=== PATIENT | female | born 1990 | race American Indian/Alaskan Native ===

== ENCOUNTER 2017-06-12 07:28 | Outpatient (CLI) | payer OTHER ==
--- NOTE | 2017-06-12 12:23 | XRay Report ---
XRAY LEFT SHOULDER THREE VIEWS: 06/12/17 07:28:00 CLINICAL: Pain FINDINGS: Acromioclavicular joint separation with elevation of the clavicle and widening of the coracoclavicular distance. Normal glenohumeral joint. No fracture. Soft tissues. IMPRESSION: Type III acromioclavicular joint injury.
== END 2017-06-12 07:29 | disposition home or self-care (01) ==
LOC: SPVIMAG 07:28
PROVIDERS: ATTEND Orthopaedic Surgery
DX: S49.82XA Other specified injuries of left shoulder and upper arm, initial encounter (principal); X58.XXXA Exposure to other specified factors, initial encounter; Y93.89 Activity, other specified; Y92.89 Other specified places as the place of occurrence of the external cause; Y99.8 Other external cause status